=== PATIENT | female | born 1950 | race Caucasian/White ===

== ENCOUNTER → 2017-03-14 | Outpatient (CLI) | payer BC ==
--- NOTE | 2017-03-14 13:44 | Diagnostic Imaging Report ---
PROCEDURE:BONE DXA DUAL ENERGY FINDINGS: Proximal femur bone mineral density (BMD) (g/cm2):0.578 Femur T-score (standard deviation relative to young adult mean BMD): -2.4 Femur Z-score (standard deviation relative to age-matched control group):-0.9 Lumbar bone mineral density (BMD) (g/cm2):0.619 Lumbar T-score (standard deviation relative to young adult mean BMD): -3.9 Lumbar Z-score (standard deviation relative to age-matched control group):-2.2 Change since prior exam (%): Femur:Not applicable. Spine:Not applicable. Change since oldest prior exam (%): Femur:Not applicable. Spine:Not applicable. IMPRESSION: World Health Organization Classification:OSTEOPOROSIS. Increased risk for fracture. *The Z-score is provided for informational purposes. The T-score is preferable for clinical decisions. When comparing exams, a change of >4% is considered statistically significant. SUGGESTED RECOMMENDATIONS: Normal \T\ Osteopenia:Consideration should be given to use of calcium supplementation, daily multiple vitamins and adequate exercise, as preventive measures against osteoporosis, if clinically indicated. Osteoporosis \T\ Severe Osteoporosis:In addition to the above, consideration should be given to medical therapy against osteoporosis, if clinically indicated. Jarek Espinoza M.D. Dictated by: Jarek Espinoza M.D. on 03/14/2017 at 13:52 Electronically approved by: Jarek Espinoza M.D. on 03/14/2017 at 13:52
--- NOTE | 2017-03-15 15:46 | Diagnostic Imaging Report ---
#[id number] - MGSCRBIL #BILATERAL DIGITAL SCREENING MAMMOGRAM WITH CAD: 03/14/2017 CLINICAL: Routine screening. No prior exams were available for comparison. Current study contains 4 films. There are scattered fibroglandular elements in both breasts. Current study was also evaluated with a Computer Aided Detection (CAD) system. There are benign calcifications in both breasts. No significant masses, calcifications, or other findings are seen in either breast. IMPRESSION: BENIGN There is no mammographic evidence of malignancy. A 1 year screening mammogram is recommended. The patient will be notified by letter of the results. Celio roberts/leti:03/15/2017 15:04:58 Mangle Feeder: Sayra TOMLINSON)(Veronica), [facility] letter sent: Normal Exam Mammogram BI-RADS: 2 Benign
== END ==
LOC: MAMMO 11:57
PROVIDERS: ATTEND Internal Medicine
DX: Z12.31 Encounter for screening mammogram for malignant neoplasm of breast (principal); M81.0 Age-related osteoporosis without current pathological fracture
CPT/HCPCS: 77080; G0202

== ENCOUNTER 2019-07-16 16:51 | Emergency (ER) | payer BC, OTHER ==
[~2019-07-16] VITALS: Ht 162.6 cm; Wt 63.5 kg
--- OUTSIDE RECORDS SUMMARY | 2019-07-16 16:52 | XMS REPORT ---
Author Author [facility] Organization [facility] Address Unknown Phone Unavailable Care Team Providers Care White Mixing Operator Name Role Phone Veronica YOUNG Unavailable Unavailable Problems This patient has no known problems. Allergies, Adverse Reactions, Alerts This patient has no known allergies or adverse reactions. Medications This patient has no known medications. Results Test Description Test Time Test Comments Text Results Atomic Results Result Comments BONE DXA DUAL ENERGY [place] [address] Patient Name: AARON JOSEPH MR #: [id number] : 1950 Age/Sex: 66/F Req #: [id number] [facility] Physician: Ordered by: RON YOUNG MD Report #: [id number] [facility] Room[facility]Bed: Procedure: [id number] DX/BONE DXA DUAL ENERGY Exam Date: Exam Time: REPORT STATUS: Signed PROCEDURE: BONE DXA DUAL ENERGY FINDINGS: Proximal femur bone mineral density (BMD) (g/cm2): 0.578 Femur T-score (standard deviation relative to young adult mean BMD): -2.4 Femur Z-score (standard deviation relative to age-matched control group): -0.9 Lumbar bone mineral density (BMD) (g/cm2): 0.619 Lumbar T-score (standard deviation relative to young adult mean BMD): -3.9 Lumbar Z-score (standard deviation relative to age-matched control group): -2.2 Change since prior exam (%): Femur: Not applicable. Spine: Not applicable. Change since oldest prior exam (%): Femur: Not applicable. Spine: Not applicable. IMPRESSION: World Health Organization Classification: OSTEOPOROSIS. Increased risk for fracture. *The Z-score is provided for informational purposes. The T-score is preferable for clinical decisions. When comparing exams, a change of >4% is considered statistically significant. SUGGESTED RECOMMENDATIONS: Normal T Osteopenia: Consideration should be given to use of calcium supplementation, daily multiple vitamins and adequate exercise, as preventive measures against osteoporosis, if clinically indicated. Osteoporosis T Severe Osteoporosis: In addition to the above, consideration should be given to medical therapy against osteoporosis, if clinically indicated. Jarek Guerra M.D. Dictated by: Jarek Guerra M.D. on 03/14/2017 at 13:52 Electronically approved by: Jarek Guerra M.D. on 03/14/2017 at 13:52 Dictated By: BROWN GUERRA MD, MD 1352 Transcribed By: WHITNEY on 03/14/17 1352 COPY TO: RON YOUNG MD MAMMOGRAPHY DIGITAL SCR BILAT [place] [address] Patient Name: AARON JOSEPH MR #: [id number] : 1950 Age/Sex: 66/F Req #: [id number] Adm Physician: Ordered by: RON YOUNG MD Report #: [id number] Location: MAMMO Room/Bed: Procedure: [id number] MG/MAMMOGRAPHY DIGITAL SCR BILAT Exam Date: 03/14/17 Exam Time: 1237 REPORT STATUS: Signed #[id number] - MGSCRBIL #BILATERAL DIGITAL SCREENING MAMMOGRAM WITH CAD: 03/14/2017 CLINICAL: Routine screening. No prior exams were available for comparison. Current study contains 4 films. There are scattered fibroglandular elements in both breasts. Current study was also evaluated with a Computer Aided Detection (CAD) system. There are benign calcifications in both breasts. No significant masses, calcifications, or other findings are seen in either breast. IMPRESSION: BENIGN There is no mammographic evidence of malignancy. A 1 year screening mammogram is recommended. The patient will be notified by letter of the results. Jonathan roberts/bere:03/15/2017 15:04:58 Pecan Cleaner: Sayra TOMLINSON)(Veronica), [facility] letter sent: Normal Exam Mammogram BI-RADS: 2 Benign Dictated By: JONATHAN VALIENTE DO 1504 Transcribed By: BERE on 03/15/17 1504 COPY TO: RON YOUNG MD
--- OUTSIDE RECORDS SUMMARY | 2019-07-16 16:52 | XMS REPORT | Clinical Summary ---
Author Author [facility] Organization [facility] Address Unknown Phone Unavailable Care Team Providers Care Flight Attendant Name Role Phone Jamie Delgado MD PCP Allergies Comments Active Allergy Reactions Severity Noted Date Procaine 09/20/2017 Medications End Date Status Medication Sig Dispensed Refills Start Date Active alendronate (FOSAMAX) 70 Take 70 mg by 0 MG tablet mouth every 7 days. Take in the morning with a full glass of water on an empty stomach, do NOT take anything else by mouth or lie down for the next 30 min. Active atorvastatin (LIPITOR) 20 Take 20 mg by 0 MG tablet mouth daily. Default OP ins Active aspirin (ECOTRIN) 81 MG Take 81 mg by 0 enteric coated tablet mouth daily. 09/27/2018 clopidogrel (PLAVIX) 75 Take 1 tablet 30 tablet 11 09/27/201 mg tablet (75 mg total) 8 by mouth daily. Active Problems Problem Noted Date Carotid stenosis, right 09/25/2017 Essential hypertension 09/25/2017 S/P carotid endarterectomy 09/25/2017 Postoperative pain 09/25/2017 Acute pulmonary insufficiency following non-thoracic surgery 09/25/2017 Encounters Care Team Description Date Type Specialty Cortes Selby NP 11/06/2018 Refill Neurology Cortes Selby NP 10/25/2018 Refill Neurology Cortes Selby NP 07/27/2018 Refill Neurology after 07/15/2018 Social History Date Tobacco Use Types Packs/Day Years Used Started: 09/21/1967 Current Every Day Smoker Cigarettes 1.5 Smokeless Tobacco: Never Used Drinks/Week oz/Week Comments Alcohol Use No Sex Assigned at Date Recorded Not on file Industry Job Start Date Occupation Not on file Not on file Not on file Travel End Travel History Travel Start No recent travel history available. Last Filed Vital Signs Not on file Plan of Treatment Health Maintenance Due Date Last Done Comments BREAST CANCER SCREENING 2002 COLONOSCOPY SCREENING 2002 SHINGLES VACCINES (#1) 2002 65+ PNEUMOCOCCAL VACCINE 2017 (1 of 2 - PCV13) INFLUENZA VACCINE 10/10/2019 Implants Device Identifier Shelf Expiration Date Model / Serial / L ot Implanted Type Area Manufactur er 10/29/2021 [id number] / / [id number] Kit Shunt Crtd Artery Rdopq Line Surgical N/A: N/A COVIDIEN 6in Strl [place] - [id number] Implants; PETER Implanted: Qty: 1 on 09/25/2017 by [employer]; [facility] Salvador Nguyen MD at [facility] Extenders; HOSPITAL Surgical Wires 04/25/2022 [id number] / / [id number] Patch Vasclr Perph 0.8x8cm Vascular N/A: N/A BAX TER Vascu-Guard - [id number] Graft [employer]OS[employer]ENCE Implanted: Qty: 1 on 09/25/2017 by Salvador Nguyen MD at [facility] Results Not on fileafter 07/15/2018 Insurance Type Payer Benefit Subscriber ID Effective Phone Address Plan / Dates Group O [employer]ANPL[employer] TEXAN[employer]US xxxxxxxxx 2017-Dav peterson Advance Directives For more information, please contact: [phone] Patient Funeral Home General Manager Explanation Type Date Recorded Advance Directives, 09/23/2017 10:14 AM Living Will and Medical Power of Paper Bag Press Operator
[2019-07-16] MEDS ORDERED: LIDOCAINE HCL 1% LOCAL INJ 20 ML VIAL INJ ONE (17:00)
[2019-07-16] MEDS ORDERED: TETANUS/DIPHTHERIA TOX ADULT 0.5 ML SYR IM ONE (17:00)
[2019-07-16] MEDS ORDERED: LIDOCAINE HCL 1% LOCAL INJ 20 ML VIAL ONE (17:34)
== END 2019-07-16 17:55 | disposition home or self-care (01) ==
LOC: ER 16:51
DX: S61.216A Laceration without foreign body of right little finger without damage to nail, initial encounter (principal); W45.8XXA Other foreign body or object entering through skin, initial encounter; Y93.E9 Activity, other interior property and clothing maintenance; Y92.008 Other place in unspecified non-institutional (private) residence as the place of occurrence of the external cause
CPT/HCPCS: 12001; 90471; 90714; 99282; J2001

== ENCOUNTER 2020-03-22 12:14 | Emergency (ER) | payer OTHER ==
[~2020-03-22] VITALS: Ht 162.6 cm; Wt 63.5 kg
[2020-03-22 14:19] VITALS: BP 119/73
== END 2020-03-22 14:20 | disposition home or self-care (01) ==
LOC: ER 12:29
DX: S83.92XA Sprain of unspecified site of left knee, initial encounter (principal); W18.30XA Fall on same level, unspecified, initial encounter; Y93.01 Activity, walking, marching and hiking; F03.90 Unspecified dementia, unspecified severity, without behavioral disturbance, psychotic disturbance, mood disturbance, and anxiety; E78.5 Hyperlipidemia, unspecified; K21.9 Gastro-esophageal reflux disease without esophagitis
CPT/HCPCS: 99283

== ENCOUNTER 2022-02-08 14:04 | Emergency (ER) | payer MEDICARE, OTHER ==
[~2022-02-08] VITALS: Ht 162.6 cm; Wt 63.5 kg
[2022-02-08] MEDS ORDERED: BACITRACIN ZINC 0.9GM TP ONE (14:27)
[2022-02-08] MEDS ORDERED: AMOXICILLIN/CLAVULANATE K 875 MG TAB ONE (14:28)
== END 2022-02-08 15:30 | disposition home or self-care (01) ==
LOC: ER 14:10
DX: S51.812A Laceration without foreign body of left forearm, initial encounter (principal); W55.01XA Bitten by cat, initial encounter; W55.03XA Scratched by cat, initial encounter; Y92.89 Other specified places as the place of occurrence of the external cause; F03.90 Unspecified dementia, unspecified severity, without behavioral disturbance, psychotic disturbance, mood disturbance, and anxiety; E78.5 Hyperlipidemia, unspecified; K21.9 Gastro-esophageal reflux disease without esophagitis; F17.210 Nicotine dependence, cigarettes, uncomplicated
CPT/HCPCS: 99284